=== PATIENT | female | born 1990 | race Caucasian/White ===

== ENCOUNTER 2017-01-01 16:50 | Emergency (ER) | payer OTHER ==
[2017-01-01] MEDS ORDERED: diphenhydrAMINE INJ 50MG/ML VIAL (J1200) As Ordered ONE (17:23)
[2017-01-01] MEDS ORDERED: METOCLOPRAMIDE INJ 10MG/2ML VIAL (J2765) As Ordered ONE (17:23)
[2017-01-01 17:41] LABS: BASO # 0.1 K/mm3 (0.0-0.2); BASO % 0.4 % (0.0-1.0); EOS # 0.2 K/mm3 (0.0-0.50); EOS % 1.2 % (0.0-3.0); LARGE UNSTAINED CELL # 0.2 K/mm3 (0.0-0.4); LARGE UNSTAINED CELL % 1.2 % (0.0-4.0); LYMPH # 4.1 K/mm3 (1.5-6.5); LYMPH % 25.8 % (24.0-44.0); MEAN CORPUSCULAR HEMOGLOBIN 28.2 pg (27.0-33.0); MEAN CORPUSCULAR HGB CONC 33.9 g/dl (32.0-36.5); MEAN CORPUSCULAR VOLUME 83.4 fl (80.0-96.0); MONO # 0.8 K/mm3 (0.0-0.8); MONO % 5.4 % (0.0-5.0); NEUTROPHILS # 9.9 K/mm3 (1.8-7.7); NEUTROPHILS % 65.9 % (36.0-66.0); PLATELET COUNT, AUTOMATED 457 k/mm3 (150-450); RED CELL DISTRIBUTION WIDTH 12.6 % (11.5-14.5)
[2017-01-01 18:08] LABS: ALBUMIN 3.8 GM/DL (3.2-5.2); ALBUMIN/GLOBULIN RATIO 0.86 (1.00-1.93); ALKALINE PHOSPHATASE 68 U/L (45-117); ALT/SGPT 24 U/L (12-78); AMYLASE 50 U/L (25-115); ANION GAP 10 MEQ/L (8-16); AST/SGOT 21 U/L (15-37); BILIRUBIN,DIRECT < 0.1 MG/DL (0.0-0.2); BILIRUBIN,TOTAL 0.2 MG/DL (0.2-1.0); BLOOD UREA NITROGEN 10 MG/DL (7-18); CALCIUM LEVEL 9.8 MG/DL (8.5-10.1); CARBON DIOXIDE LEVEL 25 MEQ/L (21-32); CHLORIDE LEVEL 106 MEQ/L (98-107); CREATININE FOR GFR 0.77 MG/DL (0.55-1.02); GLOMERULAR FILTRATION RATE > 60.0 (>60); GLUCOSE, FASTING 115 MG/DL (70-105); SODIUM LEVEL 141 MEQ/L (136-145); TOTAL PROTEIN 8.2 GM/DL (6.4-8.2)
--- NOTE | 2017-01-01 18:10 | REPUSA ---
Clinical stClinical history: Pain. Findings: Real-time transabdominal and limited transvaginal ultrasound images of the pelvis were obta ined. An anteverted uterus is noted, measuring 5.6 x 3.2 x 3.7 cm. The uterus demonstrates normal ech otexture and echogenicity. The endometrial stripe measures 6 mm and is within normal limits. The righ t ovary measures 2.9 x 2.5 x 3.3 cm. The left ovary measures 3.8 x 2.4 x 2.3 cm. No adnexal masses ar e seen. Color Doppler flow is seen within both ovaries. There is moderate amount of free fluid in the cul-de-sac and right adnexa. Impression: Unremarkable ultrasound examination of the pelvis. Moderate amount of free fluid in the p balta is likely physiologic in nature.
[2017-01-01] MEDS ORDERED: ISOVUE-370 76% 100ML VIAL (Q9967) As Ordered ONE (18:12)
--- NOTE | 2017-01-01 18:40 | REPUSA ---
CT of the abdomen and pelvis with contrast Clinical statement: Pain. Technique: Multiple axial CT images were obtained from the base of the lungs through the floor of the pelvis utilizing 5 mm axial slices after administration of nonionic intravenous contrast. Coronal an d sagittal reconstructions were also obtained. Comparison: 01/01/2017. Findings: Chest: The visualized lung bases are clear. Abdomen: The liver, spleen, pancreas, kidneys, gallbladder, and adrenal glands are unremarkable. The aorta is within normal limits. There is no evidence of abdominal lymphadenopathy or ascites. Pelvis: The bowel is unremarkable, with no obstructive or inflammatory changes. The appendix is dejuan l. The urinary bladder is within normal limits. The other pelvic structures appear grossly intact. Th ere is no evidence of pelvic lymphadenopathy. There is a small amount of free fluid in the cul-de-sac and right adnexa. Bones: There are no suspicious osseous abnormalities seen. Impression: Small amount of free fluid in the cul-de-sac and right adnexa, consistent with the prior pelvic ultrasound findings. This is likely physiologic in nature. Otherwise unremarkable CT examinati on of the abdomen and pelvis.
--- NOTE | 2017-01-01 19:59 | EDDOCDS ---
Nurse's Notes [facility] Name: Ibeth Holt Age: 26 yrs Sex: Female : 1990 Arrival Date: 01/01/2017 Time: 16:50 Bed I3 / M3 Private MD: NO PRIMARY PHYSICIAN, . Diagnosis: Other ovarian cysts Presentation: 01/01 16:53 Presenting complaint: Patient states: having pelvic and abdominal pain. symptoms for an srm hour. feels like pelvic pain that is shooting up my body. no urinary difficulty. no abnormal vag bleeding or discharge. Presenting complaint: Patient states: pain started after BM. Risk factors: the patient reports no vaginal bleeding. Adult Sepsis Screening: The patient does not have new or worsening altered mentation. Patient's respiratory rate is less than 22. Systolic blood pressure is greater than 100. Patient has a qSOFA score of 0- Negative Sepsis Screen. Suicide/Homicide risk assessment- the patient denies having any suicidal and/or homicidal ideations and does not present with any other emotional, behavioral or mental health complaints. Status: The patient is a dependent. Transition of care: patient was not received from another setting of care. 16:53 Acuity: BRITTNY Level 3 srm 16:53 Method Of Arrival: Walkin/Carried/[facility] Triage Assessment: 16:55 General: Appears in no apparent distress, Behavior is appropriate for age, cooperative. srm Pain: Pain currently is 6 out of 10 on a pain scale. GI: Reports lower abdominal pain. 16:55 Pt Declines HIV testing. 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 premaphen daily - PMHx: none; - PSHx: none; - Social history: Smoking status: Patient states was never smoker of tobacco. No barriers to communication noted, The patient speaks fluent Hungarian, Speaks appropriately for age. - Family history: Not pertinent. - : The pt / caregiver states he / she is not on anticoagulants. Home medication list is obtained from the patient. - Exposure Risk Screening:: None identified. Screenin:23 Screening information is obtained from the patient. Fall risk: No risks identified. js13 Assistance ADL's: requires no assistance with activities of daily living. Abuse/DV Screen: The patient / caregiver reports he/she is: not in a situation that causes fear, pain or injury. Nutritional screening: No deficits noted. Advance Directives: There is no active DNR order. home support is adequate. Assessment: 17:23 General: Appears in no apparent distress, Behavior is appropriate for age, cooperative. js13 Neurological: Level of Consciousness is awake, alert. Respiratory: Airway is patent Respiratory effort is even, unlabored, Respiratory pattern is regular, symmetrical. GI: Abdomen is obese, Bowel sounds present X 4 quads. Abd is soft Abd is tender to palpation. Derm: Skin is pink, warm & dry. 18:07 General: Appears in no apparent distress, Behavior is appropriate for age, cooperative. js13 Pain: Location: abdomen. Neurological: Level of Consciousness is awake, alert. Respiratory: Airway is patent Respiratory effort is even, unlabored, Respiratory pattern is regular, symmetrical. GI: Abdomen is obese. Derm: Skin is pink, warm & dry. 19:55 Adult Sepsis Screening: The patient does not have new or worsening altered mentation. lf1 Patient's respiratory rate is less than 22. Systolic blood pressure is greater than 100. Patient has a qSOFA score of 0- Negative Sepsis Screen. General: Appears in no apparent distress, comfortable, Behavior is cooperative. Pain: Location: abdomen Pain currently is 2 out of 10 on a pain scale. Neurological: Level of Consciousness is awake, alert, Oriented to person, place, time. EENT: No deficits noted. Respiratory: Respiratory effort is even, unlabored. GI: Denies nausea, vomiting. Derm: Skin is normal. Injury Description: No known injury. Vital Signs: 16:51 BP 167 / 95 RA Sitting (auto/lg); Pulse 105; Resp 18; Temp 98.3(O); Pulse Ox 100% on rs6 R/A; Weight 95.25 kg (R); Height 5 ft. 3 in. (160.02 cm) (R); Pain 6/10; 19:13 BP 137 / 69; Pulse 77; Resp 18; Temp 98.4; Pulse Ox 98% ; Pain 4/10; ajs 16:51 Body Mass Index 37.20 (95.25 kg, 160.02 cm) rs6 Vitals: 16:51 Log In Time: January 01, 2017 at 16:51. 6 ED Course: 16:51 Patient visited by Constance Cm PCA. rs6 16:51 NO PRIMARY PHYSICIAN, . is Private Physician. rs6 16:51 Patient moved to Waiting rs6 16:52 Patient visited by Constance Cm PCA. rs6 16:52 Patient moved to Pre RCE rs6 16:54 Triage Initiated srm 16:56 Patient moved to Triage 1 srm 17:00 Chang Becerril PA is PHCP. btw 17:00 Jacinta Nelson MD is Attending Physician. btw 17:00 Patient visited by Chang Becerril PA. btw 17:07 Patient moved to I3 / M3 jf3 17:17 Urine Culture Sent. jam1 17:17 Urinalysis Sent. jam1 17:22 Amylase Sent. js13 17:22 Basic Metabolic Profile Sent. js13 17:23 Patient moved to Ultrasound am17 17:23 The patient / caregiver is instructed regarding the plan of care and ED course. js13 17:23 CBC with Diff Sent. js13 17:23 Lipase Sent. js13 17:23 Liver Profile Sent. js13 17:23 Inserted saline lock: 18 gauge in left forearm and blood collected. The patient js13 tolerated the procedure well. No procedures done that require assistance. Labs drawn. (by ED staff). Sent per order to lab. Urine collected. Clean catch specimen. Urine specimen sent to lab. 17:24 Patient visited by Florencia Lombardo RN. js13 17:38 [facility] Payment Agreement was scanned into [employer] and attached to record. ks16 17:40 Patient moved to I3 / M3 am17 17:55 Patient visited by iMlton Millard, LEONOR. ml6 18:35 Patient visited by Milton Millard, LEONOR. ml6 18:40 -US Pelvic Non-Ob Complete Returned. EDMS 18:40 CT ABD & PELVIS: IV Contrast Only Returned. EDMS 19:13 Patient visited by Ibeth Farrar. ajs 19:24 Your Academic Advisement Director is Referral Physician. btw 19:55 Discontinued IV lock intact, bleeding controlled, pressure dressing applied, No lf1 redness/swelling at site. Administered Medications: 17:39 Drug: diphenhydrAMINE 50 mg [diphenhydramine 50 mg/mL injection solution (1 mL)] Route: ml6 IVP; Site: left antecubital; 19:55 Follow up: Response: Nausea is resolved lf1 17:40 Drug: NS 0.9% 1000 ml [sodium chloride 0.9 % intravenous solution] Route: IV; Rate: ml6 bolus; Site: left antecubital; 19:55 Follow up: IV Status: Completed infusion; Infusion discontinued; IV Intake: 1000ml lf1 17:40 Drug: Metoclopramide 20 mg [metoclopramide 5 mg/mL injection solution] Route: IV; Rate: ml6 80 mg/hr; Infused Over: 15 mins; Site: left antecubital; 19:55 Follow up: IV Status: Completed infusion lf1 Point of Care Testing: Urine : 17:18 hCG Reading: Negative; Control Reading: Negative; [facility] Ranges: Intake: 19:55 IV: 1000.00ml; Total: 1000.00ml. 1 Order Results: Lab Order: Amylase; SPEC'M 01/01/17 17:20 Test: AMYLASE; Value: 50; Range: 25-115; Units: U/L; Status: F Lab Order: Basic Metabolic Profile; SPEC'M 01/01/17 17:20 Test: GLUCOSE, FASTING; Value: 115; Range: 70-105; Abnormal: Above high normal; Units: MG/DL; Status: F Test: BLOOD UREA NITROGEN; Value: 10; Range: 7-18; Units: MG/DL; Status: F Test: CREATININE FOR GFR; Value: 0.77; Range: 0.55-1.02; Units: MG/DL; Status: F Test: GLOMERULAR FILTRATION RATE; Value: > 60.0; Range: >60; Status: F Test: SODIUM LEVEL; Value: 141; Range: 136-145; Units: MEQ/L; Status: F Test: POTASSIUM SERUM; Value: 4.0; Range: 3.5-5.1; Units: MEQ/L; Status: F Test: CHLORIDE LEVEL; Value: 106; Range: 98-107; Units: MEQ/L; Status: F Test: CARBON DIOXIDE LEVEL; Value: 25; Range: 21-32; Units: MEQ/L; Status: F Test: ANION GAP; Value: 10; Range: 8-16; Units: MEQ/L; Status: F Test: CALCIUM LEVEL; Value: 9.8; Range: 8.5-10.1; Units: MG/DL; Status: F Test Note: ; Units are mL/min/1.73 m2 Chronic Kidney Disease Staging per NKF: Stage I & II GFR >=60 Normal to Mildly Decreased Stage III GFR 30-59 Moderately Decreased Stage IV GFR 15-29 Severely Decreased Stage V GFR <15 Very Little GFR Left ESRD GFR <15 on E [employer] Lab Order: CBC with Diff; SPEC'M 01/01/17 17:20 Test: WHITE BLOOD COUNT; Value: 15.0; Range: 4.0-10.0; Abnormal: Above high normal; Units: K/mm3; Status: F Test: RED BLOOD COUNT; Value: 4.68; Range: 4.00-5.40; Units: M/mm3; Status: F Test: HEMOGLOBIN; Value: 13.2; Range: 12.0-16.0; Units: g/dl; Status: F Test: HEMATOCRIT; Value: 39.0; Range: 36.0-47.0; Units: %; Status: F Test: MEAN CORPUSCULAR VOLUME; Value: 83.4; Range: 80.0-96.0; Units: fl; Status: F Test: MEAN CORPUSCULAR HEMOGLOBIN; Value: 28.2; Range: 27.0-33.0; Units: pg; Status: F Test: MEAN CORPUSCULAR HGB CONC; Value: 33.9; Range: 32.0-36.5; Units: g/dl; Status: F Test: RED CELL DISTRIBUTION WIDTH; Value: 12.6; Range: 11.5-14.5; Units: %; Status: F Test: PLATELET COUNT, AUTOMATED; Value: 457; Range: 150-450; Abnormal: Above high normal; Units: k/mm3; Status: F Test: NEUTROPHILS %; Value: 65.9; Range: 36.0-66.0; Units: %; Status: F Test: LYMPH %; Value: 25.8; Range: 24.0-44.0; Units: %; Status: F Test: MONO %; Value: 5.4; Range: 0.0-5.0; Abnormal: Above high normal; Units: %; Status: F Test: EOS %; Value: 1.2; Range: 0.0-3.0; Units: %; Status: F Test: BASO %; Value: 0.4; Range: 0.0-1.0; Units: %; Status: F Test: LARGE UNSTAINED CELL %; Value: 1.2; Range: 0.0-4.0; Units: %; Status: F Test: NEUTROPHILS #; Value: 9.9; Range: 1.8-7.7; Abnormal: Above high normal; Units: K/mm3; Status: F Test: LYMPH #; Value: 4.1; Range: 1.5-6.5; Units: K/mm3; Status: F Test: MONO #; Value: 0.8; Range: 0.0-0.8; Units: K/mm3; Status: F Test: EOS #; Value: 0.2; Range: 0.0-0.50; Units: K/mm3; Status: F Test: BASO #; Value: 0.1; Range: 0.0-0.2; Units: K/mm3; Status: F Test: LARGE UNSTAINED CELL #; Value: 0.2; Range: 0.0-0.4; Units: K/mm3; Status: F Lab Order: Lipase; SPEC' 01/01/17 17:20 Test: LIPASE; Value: 138; Range: 73-393; Units: U/L; Status: F Lab Order: Liver Profile; [facility]' 01/01/17 17:20 Test: AST/SGOT; Value: 21; Range: 15-37; Units: U/L; Status: F Test: ALT/SGPT; Value: 24; Range: 12-78; Units: U/L; Status: F Test: ALKALINE PHOSPHATASE; Value: 68; Range: 45-117; Units: U/L; Status: F Test: BILIRUBIN,TOTAL; Value: 0.2; Range: 0.2-1.0; Units: MG/DL; Status: F Test: BILIRUBIN,DIRECT; Value: < 0.1; Range: 0.0-0.2; Units: MG/DL; Status: F Test: TOTAL PROTEIN; Value: 8.2; Range: 6.4-8.2; Units: GM/DL; Status: F Test: ALBUMIN; Value: 3.8; Range: 3.2-5.2; Units: GM/DL; Status: F Test: ALBUMIN/GLOBULIN RATIO; Value: 0.86; Range: 1.00-1.93; Abnormal: Below low normal; Status: F Lab Order: Urinalysis; SPEC'M 01/01/17 17:22 Test: APPEARANCE, URINE; Value: HAZY; Range: CLEAR; Status: F Test: COLOR, URINE; Value: YELLOW; Range: YELLOW; Status: F Test: PH,URINE; Value: 6.0; Range: 5.0-9.0; Units: UNITS; Status: F Test: SPECIFIC GRAVITY URINE AUTO; Value: 1.029; Range: 1.002-1.035; Status: F Test: PROTEIN, URINE AUTO; Value: NEGATIVE; Range: NEGATIVE; Units: mg/dL; Status: F Test: GLUCOSE, URINE (UA) AUTO; Value: NEGATIVE; Range: NEGATIVE; Units: mg/dL; Status: F Test: KETONE, URINE AUTO; Value: NEGATIVE; Range: NEGATIVE; Units: mg/dL; Status: F Test: UROBILINOGEN, URINE AUTO; Value: 0.2; Range: 0.0-2.0; Units: mg/dL; Status: F Test: BILIRUBIN, URINE AUTO; Value: NEGATIVE; Range: NEGATIVE; Status: F Test: NITRITE, URINE AUTO; Value: NEGATIVE; Range: NEGATIVE; Status: F Test: LEUKOCYTE ESTERASE, URINE AUTO; Value: TRACE; Range: NEGATIVE; Abnormal: Above high normal; Status: F Test: BLOOD, URINE BLOOD; Value: NEGATIVE; Range: NEGATIVE; Status: F Test: WBC, URINE AUTO; Value: 2; Range: 0-3; Units: /HPF; Status: F Test: RBC, URINE AUTO; Value: 3; Range: 0-3; Units: /HPF; Status: F Test: BACTERIA, URINE AUTO; Value: NEGATIVE; Range: NEGATIVE; Status: F Test: SQUAMOUS EPITHELIAL CELL UR AU; Value: 3; Range: 0-6; Units: /HPF; Status: F Test: MUCUS, URINE; Value: SMALL; Range: NEGATIVE; Status: F Test: HYALINE CAST, URINE AUTO; Value: 0; Range: 0-1; Units: /LPF; Status: F Radiology Order: CT ABD & PELVIS: IV Contrast Only Test: CT ABD & PELVIS: IV Contrast Only REASON FOR EXAMINATION: Appendicitis; ; CT of the abdomen and pelvis with contrast; Clinical statement: Pain.; Technique: Multiple axial CT images were obtained from the base of the lungs through the floor of the; pelvis utilizing 5 mm axial slices after administration of nonionic intravenous contrast. Coronal an; d sagittal reconstructions were also obtained.; Comparison: 01/01/2017.; Findings:; Chest: The visualized lung bases are clear.; Abdomen: The liver, spleen, pancreas, kidneys, gallbladder, and adrenal glands are unremarkable. The; aorta is within normal limits. There is no evidence of abdominal lymphadenopathy or ascites.; Pelvis: The bowel is unremarkable, with no obstructive or inflammatory changes. The appendix is dejuan; l. The urinary bladder is within normal limits. The other pelvic structures appear grossly intact. Th; ere is no evidence of pelvic lymphadenopathy. There is a small amount of free fluid in the cul-de-sac; and right adnexa.; Bones: There are no suspicious osseous abnormalities seen.; Impression: Small amount of free fluid in the cul-de-sac and right adnexa, consistent with the prior; pelvic ultrasound findings. This is likely physiologic in nature. Otherwise unremarkable CT examinati; on of the abdomen and pelvis.; ; Radiology Order: -US Pelvic Non-Ob Complete Test: -US Pelvic Non-Ob Complete REASON FOR EXAMINATION: Adnexal Pain r/o Torsion; ; Clinical stClinical history: Pain.; Findings: Real-time transabdominal and limited transvaginal ultrasound images of the pelvis were obta; ined. An anteverted uterus is noted, measuring 5.6 x 3.2 x 3.7 cm. The uterus demonstrates normal ech; otexture and echogenicity. The endometrial stripe measures 6 mm and is within normal limits. The righ; t ovary measures 2.9 x 2.5 x 3.3 cm. The left ovary measures 3.8 x 2.4 x 2.3 cm. No adnexal masses ar; e seen. Color Doppler flow is seen within both ovaries. There is moderate amount of free fluid in the; cul-de-sac and right adnexa.; Impression: Unremarkable ultrasound examination of the pelvis. Moderate amount of free fluid in the p; balta is likely physiologic in nature.; ; Outcome: 19:25 Discharge ordered by Provider. btw 19:55 Discharge Assessment: Patient awake, alert and oriented x 3. No cognitive and/or lf1 functional deficits noted. Patient verbalized understanding of disposition instructions. Patient awake and alert. Oriented to person, place and time. Patient verbalized understanding of disposition instructions. patient administered narcotics - no. The following High Risk Discharge criteria are identified: None. Discharged to home ambulatory. Condition: improved. Discharge instructions given to patient, Instructed on discharge instructions, follow up and referral plans. medication usage, Demonstrated understanding of instructions, medications, Pt was receptive of discharge instructions/ teaching. Prescriptions given X 1. No special radiology studies were completed. Property :Personal belongings accompany Pt. 19:58 Patient left the ED. lf1 Signatures: Dispatcher [employer] EDMS Lillian Giles, RN RN Cyndy Corbin, DEDICATED REGIONAL DRIVER DEDICATED REGIONAL DRIVER jam1 Rebecca Liang,RN RN lf1 Milton Millard, RN RN ml6 Chang Becerril PA PA btw Ibeth Farrar Jennifer,RN RN js13 Anna Marie Hill amConstance Mike, DEDICATED REGIONAL DRIVER DEDICATED REGIONAL DRIVER rs6 Azeem Shea,RN RN jf3 Thao Ronquillo, Reg Reg ks16 MTDD
--- NOTE | 2017-01-01 19:59 | EDDOCDS ---
Physician Documentation [facility] Name: Ibeth Holt Age: 26 yrs Sex: Female : 1990 Arrival Date: 01/01/2017 Time: 16:50 Bed I3 / M3 Private MD: NO PRIMARY PHYSICIAN, . Disposition: 01/01/17 19:25 Discharged to Home/Self Care. Impression: Other ovarian cysts. - Condition is Stable. - Discharge Instructions: Ovarian Cyst, [id number]. - Prescriptions for etodolac 200 mg Oral Capsule - take 1 capsule by ORAL route 3 times per day; 30 capsule. - Medication Reconciliation, Local Pharmacy Hours form. 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 - Problem is new. - Symptoms have improved. Historical: - Allergies: no known allergies; - Home Meds: 1. premaphen daily - PMHx: none; - PSHx: none; - Social history: Smoking status: Patient states was never smoker of tobacco. No barriers to communication noted, The patient speaks fluent Romansh, Speaks appropriately for age. - Family history: Not pertinent. - : The pt / caregiver states he / she is not on anticoagulants. Home medication list is obtained from the patient. - Exposure Risk Screening:: None identified. 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 3 in. (160.02 cm) (R); Pain 6/10; 19:13 BP 137 / 69; Pulse 77; Resp 18; Temp 98.4; Pulse Ox 98% ; Pain 4/10; ajs 16:51 Body Mass Index 37.20 (95.25 kg, 160.02 cm) rs6 MDM: 17:06 NS 0.9% 1000 ml IV at bolus once ordered. btw 17:06 IV Saline Lock ordered. btw 17:06 Undress patient appropriately for examination ordered. btw 17:06 Metoclopramide 20 mg IV at 80 mg/hr once over 15 mins ordered. btw 17:06 diphenhydrAMINE 50 mg IVP once ordered. btw 17:07 Amylase Ordered. EDMS 17:07 Basic Metabolic Profile Ordered. EDMS 17:07 CBC with Diff Ordered. EDMS 17:07 Lipase Ordered. EDMS 17:07 Liver Profile Ordered. EDMS 17:07 Urinalysis Ordered. EDMS 17:08 Urine Culture Ordered. EDMS 17:08 -US Pelvic Non-Ob Complete Ordered. EDMS 17:08 DUPLEX SCAN LIMITED (DOPPLER)+US Ordered. EDMS 17:08 CT ABD & PELVIS: IV Contrast Only Ordered. EDMS 17:08 NOTHING BY MOUTH+DIET ordered. EDMS 17:12 UCG by Nursing ordered. btw 17:28 Financial registration complete. ks16 17:38 Transvaginal NON- US Ordered. EDMS 17:38 [facility] Payment Agreement was scanned into [employer] and attached to record. ks16 18:12 Basic Metabolic Profile Reviewed. btw 18:12 CBC with Diff Reviewed. btw 18:12 Liver Profile Reviewed. btw 18:12 Urinalysis Reviewed. btw 18:12 Amylase Reviewed. btw 18:12 Lipase Reviewed. btw Point of Care Testing: Urine : 17:18 hCG Reading: Negative; Control Reading: Negative; jam1 Ranges: Administered Medications: 17:39 Drug: diphenhydrAMINE 50 mg [diphenhydramine 50 mg/mL injection solution (1 mL)] Route: ml6 IVP; Site: left antecubital; 19:55 Follow up: Response: Nausea is resolved lf1 17:40 Drug: NS 0.9% 1000 ml [sodium chloride 0.9 % intravenous solution] Route: IV; Rate: ml6 bolus; Site: left antecubital; 19:55 Follow up: IV Status: Completed infusion; Infusion discontinued; IV Intake: 1000ml lf1 17:40 Drug: Metoclopramide 20 mg [metoclopramide 5 mg/mL injection solution] Route: IV; Rate: ml6 80 mg/hr; Infused Over: 15 mins; Site: left antecubital; 19:55 Follow up: IV Status: Completed infusion lf1 Signatures: Dispatcher [employer] EDMS Lillian Giles RN RN [facility] Rebecca Liang RN RN 1 Chang Becerril PA PA btw Sullivan, JenniferRN RN js13 Thao Ronquillo, Reg Reg ks16 Milton Millard RN ml6 The chart was reviewed and I authenticate all verbal orders and agree with the evaluation and treatment provided.Attachments: 17:38 [facility] Payment Agreement ks16 MTDD
--- NOTE | 2017-01-03 20:59 | EDDOCDS ---
Nurse's Notes [facility] Name: Ibeth Holt Age: 26 yrs Sex: Female : 1990 Arrival Date: 01/01/2017 Time: 16:50 Bed I3 / M3 Private MD: NO PRIMARY PHYSICIAN, . Diagnosis: Other ovarian cysts Presentation: 01/01 16:53 Presenting complaint: Patient states: having pelvic and abdominal pain. symptoms for an srm hour. feels like pelvic pain that is shooting up my body. no urinary difficulty. no abnormal vag bleeding or discharge. Presenting complaint: Patient states: pain started after BM. Risk factors: the patient reports no vaginal bleeding. Adult Sepsis Screening: The patient does not have new or worsening altered mentation. Patient's respiratory rate is less than 22. Systolic blood pressure is greater than 100. Patient has a qSOFA score of 0- Negative Sepsis Screen. Suicide/Homicide risk assessment- the patient denies having any suicidal and/or homicidal ideations and does not present with any other emotional, behavioral or mental health complaints. Status: The patient is a dependent. Transition of care: patient was not received from another setting of care. 16:53 Acuity: BRITTNY Level 3 srm 16:53 Method Of Arrival: Walkin/Carried/[facility] Triage Assessment: 16:55 General: Appears in no apparent distress, Behavior is appropriate for age, cooperative. srm Pain: Pain currently is 6 out of 10 on a pain scale. GI: Reports lower abdominal pain. 16:55 Pt Declines HIV testing. srm SURGERY AID: 16:55 LMP 12/25/2016 srm Historical: - Allergies: no known allergies; - Home Meds: 1. premaphen daily - PMHx: none; - PSHx: none; - Social history: Smoking status: Patient states was never smoker of tobacco. No barriers to communication noted, The patient speaks fluent Mohawk, Speaks appropriately for age. - Family history: Not pertinent. - : The pt / caregiver states he / she is not on anticoagulants. Home medication list is obtained from the patient. - Exposure Risk Screening:: None identified. Screenin:23 Screening information is obtained from the patient. Fall risk: No risks identified. js13 Assistance ADL's: requires no assistance with activities of daily living. Abuse/DV Screen: The patient / caregiver reports he/she is: not in a situation that causes fear, pain or injury. Nutritional screening: No deficits noted. Advance Directives: There is no active DNR order. home support is adequate. Assessment: 17:23 General: Appears in no apparent distress, Behavior is appropriate for age, cooperative. js13 Neurological: Level of Consciousness is awake, alert. Respiratory: Airway is patent Respiratory effort is even, unlabored, Respiratory pattern is regular, symmetrical. GI: Abdomen is obese, Bowel sounds present X 4 quads. Abd is soft Abd is tender to palpation. Derm: Skin is pink, warm & dry. 18:07 General: Appears in no apparent distress, Behavior is appropriate for age, cooperative. js13 Pain: Location: abdomen. Neurological: Level of Consciousness is awake, alert. Respiratory: Airway is patent Respiratory effort is even, unlabored, Respiratory pattern is regular, symmetrical. GI: Abdomen is obese. Derm: Skin is pink, warm & dry. 19:55 Adult Sepsis Screening: The patient does not have new or worsening altered mentation. lf1 Patient's respiratory rate is less than 22. Systolic blood pressure is greater than 100. Patient has a qSOFA score of 0- Negative Sepsis Screen. General: Appears in no apparent distress, comfortable, Behavior is cooperative. Pain: Location: abdomen Pain currently is 2 out of 10 on a pain scale. Neurological: Level of Consciousness is awake, alert, Oriented to person, place, time. EENT: No deficits noted. Respiratory: Respiratory effort is even, unlabored. GI: Denies nausea, vomiting. Derm: Skin is normal. Injury Description: No known injury. Vital Signs: 16:51 BP 167 / 95 RA Sitting (auto/lg); Pulse 105; Resp 18; Temp 98.3(O); Pulse Ox 100% on rs6 R/A; Weight 95.25 kg (R); Height 5 ft. 3 in. (160.02 cm) (R); Pain 6/10; 19:13 BP 137 / 69; Pulse 77; Resp 18; Temp 98.4; Pulse Ox 98% ; Pain 4/10; ajs 16:51 Body Mass Index 37.20 (95.25 kg, 160.02 cm) rs6 Vitals: 16:51 Log In Time: January 01, 2017 at 16:51. 6 ED Course: 16:51 Patient visited by Constance Cm PCA. rs6 16:51 NO PRIMARY PHYSICIAN, . is Private Physician. rs6 16:51 Patient moved to Waiting rs6 16:52 Patient visited by Constance Cm PCA. rs6 16:52 Patient moved to Pre RCE rs6 16:54 Triage Initiated srm 16:56 Patient moved to Triage 1 srm 17:00 Chang Beecrril PA is PHCP. btw 17:00 Jacinta Nelson MD is Attending Physician. btw 17:00 Patient visited by Chang Becerril PA. btw 17:07 Patient moved to I3 / M3 jf3 17:17 Urine Culture Sent. jam1 17:17 Urinalysis Sent. jam1 17:22 Amylase Sent. js13 17:22 Basic Metabolic Profile Sent. js13 17:23 Patient moved to Ultrasound am17 17:23 The patient / caregiver is instructed regarding the plan of care and ED course. js13 17:23 CBC with Diff Sent. js13 17:23 Lipase Sent. js13 17:23 Liver Profile Sent. js13 17:23 Inserted saline lock: 18 gauge in left forearm and blood collected. The patient js13 tolerated the procedure well. No procedures done that require assistance. Labs drawn. (by ED staff). Sent per order to lab. Urine collected. Clean catch specimen. Urine specimen sent to lab. 17:24 Patient visited by Florencia Lombardo,LEONOR. js13 17:38 [facility] Payment Agreement was scanned into [employer] and attached to record. ks16 17:40 Patient moved to I3 / M3 am17 17:55 Patient visited by Milton Millard, RN. ml6 18:35 Patient visited by Milton Millard, LEONOR. ml6 18:40 -US Pelvic Non-Ob Complete Returned. EDMS 18:40 CT ABD & PELVIS: IV Contrast Only Returned. EDMS 19:13 Patient visited by Ibeth Farrar. ajs 19:24 Your Joist Setter is Referral Physician. btw 19:55 Discontinued IV lock intact, bleeding controlled, pressure dressing applied, No lf1 redness/swelling at site. 01/02 11:38 T-Sheet-- Draft Copy was scanned into [employer] and attached to record. gb Administered Medications: 01/01 17:39 Drug: diphenhydrAMINE 50 mg [diphenhydramine 50 mg/mL injection solution (1 mL)] Route: ml6 IVP; Site: left antecubital; 19:55 Follow up: Response: Nausea is resolved lf1 17:40 Drug: NS 0.9% 1000 ml [sodium chloride 0.9 % intravenous solution] Route: IV; Rate: ml6 bolus; Site: left antecubital; 19:55 Follow up: IV Status: Completed infusion; Infusion discontinued; IV Intake: 1000ml 1 17:40 Drug: Metoclopramide 20 mg [metoclopramide 5 mg/mL injection solution] Route: IV; Rate: ml6 80 mg/hr; Infused Over: 15 mins; Site: left antecubital; 19:55 Follow up: IV Status: Completed infusion lf1 Point of Care Testing: Urine : 17:18 hCG Reading: Negative; Control Reading: Negative; jam1 Ranges: Intake: 19:55 IV: 1000.00ml; Total: 1000.00ml. 1 Order Results: Lab Order: Amylase; SPEC'M 01/01/17 17:20 Test: AMYLASE; Value: 50; Range: 25-115; Units: U/L; Status: F Lab Order: Basic Metabolic Profile; SPEC'M 01/01/17 17:20 Test: GLUCOSE, FASTING; Value: 115; Range: 70-105; Abnormal: Above high normal; Units: MG/DL; Status: F Test: BLOOD UREA NITROGEN; Value: 10; Range: 7-18; Units: MG/DL; Status: F Test: CREATININE FOR GFR; Value: 0.77; Range: 0.55-1.02; Units: MG/DL; Status: F Test: GLOMERULAR FILTRATION RATE; Value: > 60.0; Range: >60; Status: F Test: SODIUM LEVEL; Value: 141; Range: 136-145; Units: MEQ/L; Status: F Test: POTASSIUM SERUM; Value: 4.0; Range: 3.5-5.1; Units: MEQ/L; Status: F Test: CHLORIDE LEVEL; Value: 106; Range: 98-107; Units: MEQ/L; Status: F Test: CARBON DIOXIDE LEVEL; Value: 25; Range: 21-32; Units: MEQ/L; Status: F Test: ANION GAP; Value: 10; Range: 8-16; Units: MEQ/L; Status: F Test: CALCIUM LEVEL; Value: 9.8; Range: 8.5-10.1; Units: MG/DL; Status: F Test Note: ; Units are mL/min/1.73 m2 Chronic Kidney Disease Staging per NKF: Stage I & II GFR >=60 Normal to Mildly Decreased Stage III GFR 30-59 Moderately Decreased Stage IV GFR 15-29 Severely Decreased Stage V GFR <15 Very Little GFR Left ESRD GFR <15 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 Lab Order: CBC with Diff; SPEC'M 01/01/17 17:20 Test: WHITE BLOOD COUNT; Value: 15.0; Range: 4.0-10.0; Abnormal: Above high normal; Units: K/mm3; Status: F Test: RED BLOOD COUNT; Value: 4.68; Range: 4.00-5.40; Units: M/mm3; Status: F Test: HEMOGLOBIN; Value: 13.2; Range: 12.0-16.0; Units: g/dl; Status: F Test: HEMATOCRIT; Value: 39.0; Range: 36.0-47.0; Units: %; Status: F Test: MEAN CORPUSCULAR VOLUME; Value: 83.4; Range: 80.0-96.0; Units: fl; Status: F Test: MEAN CORPUSCULAR HEMOGLOBIN; Value: 28.2; Range: 27.0-33.0; Units: pg; Status: F Test: MEAN CORPUSCULAR HGB CONC; Value: 33.9; Range: 32.0-36.5; Units: g/dl; Status: F Test: RED CELL DISTRIBUTION WIDTH; Value: 12.6; Range: 11.5-14.5; Units: %; Status: F Test: PLATELET COUNT, AUTOMATED; Value: 457; Range: 150-450; Abnormal: Above high normal; Units: k/mm3; Status: F Test: NEUTROPHILS %; Value: 65.9; Range: 36.0-66.0; Units: %; Status: F Test: LYMPH %; Value: 25.8; Range: 24.0-44.0; Units: %; Status: F Test: MONO %; Value: 5.4; Range: 0.0-5.0; Abnormal: Above high normal; Units: %; Status: F Test: EOS %; Value: 1.2; Range: 0.0-3.0; Units: %; Status: F Test: BASO %; Value: 0.4; Range: 0.0-1.0; Units: %; Status: F Test: LARGE UNSTAINED CELL %; Value: 1.2; Range: 0.0-4.0; Units: %; Status: F Test: NEUTROPHILS #; Value: 9.9; Range: 1.8-7.7; Abnormal: Above high normal; Units: K/mm3; Status: F Test: LYMPH #; Value: 4.1; Range: 1.5-6.5; Units: K/mm3; Status: F Test: MONO #; Value: 0.8; Range: 0.0-0.8; Units: K/mm3; Status: F Test: EOS #; Value: 0.2; Range: 0.0-0.50; Units: K/mm3; Status: F Test: BASO #; Value: 0.1; Range: 0.0-0.2; Units: K/mm3; Status: F Test: LARGE UNSTAINED CELL #; Value: 0.2; Range: 0.0-0.4; Units: K/mm3; Status: F Lab Order: Lipase; SPEC' 01/01/17 17:20 Test: LIPASE; Value: 138; Range: 73-393; Units: U/L; Status: F Lab Order: Liver Profile; SPEC' 01/01/17 17:20 Test: AST/SGOT; Value: 21; Range: 15-37; Units: U/L; Status: F Test: ALT/SGPT; Value: 24; Range: 12-78; Units: U/L; Status: F Test: ALKALINE PHOSPHATASE; Value: 68; Range: 45-117; Units: U/L; Status: F Test: BILIRUBIN,TOTAL; Value: 0.2; Range: 0.2-1.0; Units: MG/DL; Status: F Test: BILIRUBIN,DIRECT; Value: < 0.1; Range: 0.0-0.2; Units: MG/DL; Status: F Test: TOTAL PROTEIN; Value: 8.2; Range: 6.4-8.2; Units: GM/DL; Status: F Test: ALBUMIN; Value: 3.8; Range: 3.2-5.2; Units: GM/DL; Status: F Test: ALBUMIN/GLOBULIN RATIO; Value: 0.86; Range: 1.00-1.93; Abnormal: Below low normal; Status: F Lab Order: Urinalysis; SPEC'M 01/01/17 17:22 Test: APPEARANCE, URINE; Value: HAZY; Range: CLEAR; Status: F Test: COLOR, URINE; Value: YELLOW; Range: YELLOW; Status: F Test: PH,URINE; Value: 6.0; Range: 5.0-9.0; Units: UNITS; Status: F Test: SPECIFIC GRAVITY URINE AUTO; Value: 1.029; Range: 1.002-1.035; Status: F Test: PROTEIN, URINE AUTO; Value: NEGATIVE; Range: NEGATIVE; Units: mg/dL; Status: F Test: GLUCOSE, URINE (UA) AUTO; Value: NEGATIVE; Range: NEGATIVE; Units: mg/dL; Status: F Test: KETONE, URINE AUTO; Value: NEGATIVE; Range: NEGATIVE; Units: mg/dL; Status: F Test: UROBILINOGEN, URINE AUTO; Value: 0.2; Range: 0.0-2.0; Units: mg/dL; Status: F Test: BILIRUBIN, URINE AUTO; Value: NEGATIVE; Range: NEGATIVE; Status: F Test: NITRITE, URINE AUTO; Value: NEGATIVE; Range: NEGATIVE; Status: F Test: LEUKOCYTE ESTERASE, URINE AUTO; Value: TRACE; Range: NEGATIVE; Abnormal: Above high normal; Status: F Test: BLOOD, URINE BLOOD; Value: NEGATIVE; Range: NEGATIVE; Status: F Test: WBC, URINE AUTO; Value: 2; Range: 0-3; Units: /HPF; Status: F Test: RBC, URINE AUTO; Value: 3; Range: 0-3; Units: /HPF; Status: F Test: BACTERIA, URINE AUTO; Value: NEGATIVE; Range: NEGATIVE; Status: F Test: SQUAMOUS EPITHELIAL CELL UR AU; Value: 3; Range: 0-6; Units: /HPF; Status: F Test: MUCUS, URINE; Value: SMALL; Range: NEGATIVE; Status: F Test: HYALINE CAST, URINE AUTO; Value: 0; Range: 0-1; Units: /LPF; Status: F Lab Order: Urine Culture; SPEC'M 01/01/17 17:22 Test: URINE CULTURE; Value: <EXTERNAL COMMENT eCWMed> FULL REPORT IN LAB NOTES (eCW and Medent).; Status: F Test: URINE CULTURE; Value: URINE CULTURE RESULT NO GROWTH CLINICAL SIGNIFICANCE 1 ORGANISM; Status: F Radiology Order: CT ABD & PELVIS: IV Contrast Only Test: CT ABD & PELVIS: IV Contrast Only REASON FOR EXAMINATION: Appendicitis; ; CT of the abdomen and pelvis with contrast; Clinical statement: Pain.; Technique: Multiple axial CT images were obtained from the base of the lungs through the floor of the; pelvis utilizing 5 mm axial slices after administration of nonionic intravenous contrast. Coronal an; d sagittal reconstructions were also obtained.; Comparison: 01/01/2017.; Findings:; Chest: The visualized lung bases are clear.; Abdomen: The liver, spleen, pancreas, kidneys, gallbladder, and adrenal glands are unremarkable. The; aorta is within normal limits. There is no evidence of abdominal lymphadenopathy or ascites.; Pelvis: The bowel is unremarkable, with no obstructive or inflammatory changes. The appendix is dejuan; l. The urinary bladder is within normal limits. The other pelvic structures appear grossly intact. Th; ere is no evidence of pelvic lymphadenopathy. There is a small amount of free fluid in the cul-de-sac; and right adnexa.; Bones: There are no suspicious osseous abnormalities seen.; Impression: Small amount of free fluid in the cul-de-sac and right adnexa, consistent with the prior; pelvic ultrasound findings. This is likely physiologic in nature. Otherwise unremarkable CT examinati; on of the abdomen and pelvis.; ; Radiology Order: -US Pelvic Non-Ob Complete Test: -US Pelvic Non-Ob Complete REASON FOR EXAMINATION: Adnexal Pain r/o Torsion; ; Clinical stClinical history: Pain.; Findings: Real-time transabdominal and limited transvaginal ultrasound images of the pelvis were obta; ined. An anteverted uterus is noted, measuring 5.6 x 3.2 x 3.7 cm. The uterus demonstrates normal ech; otexture and echogenicity. The endometrial stripe measures 6 mm and is within normal limits. The righ; t ovary measures 2.9 x 2.5 x 3.3 cm. The left ovary measures 3.8 x 2.4 x 2.3 cm. No adnexal masses ar; e seen. Color Doppler flow is seen within both ovaries. There is moderate amount of free fluid in the; cul-de-sac and right adnexa.; Impression: Unremarkable ultrasound examination of the pelvis. Moderate amount of free fluid in the p; balta is likely physiologic in nature.; ; Outcome: 19:25 Discharge ordered by Provider. btw 19:55 Discharge Assessment: Patient awake, alert and oriented x 3. No cognitive and/or lf1 functional deficits noted. Patient verbalized understanding of disposition instructions. Patient awake and alert. Oriented to person, place and time. Patient verbalized understanding of disposition instructions. patient administered narcotics - no. The following High Risk Discharge criteria are identified: None. Discharged to home ambulatory. Condition: improved. Discharge instructions given to patient, Instructed on discharge instructions, follow up and referral plans. medication usage, Demonstrated understanding of instructions, medications, Pt was receptive of discharge instructions/ teaching. Prescriptions given X 1. No special radiology studies were completed. Property :Personal belongings accompany Pt. 19:58 Patient left the ED. lf1 Signatures: Dispatcher [employer] EDMS Lillian Giles, RN RN Cyndy Corbin, IGNITION EXPERT IGNITION EXPERT jam1 Grace Milligan, Reg Reg gb Rebecca Liang,RN RN lf1 Milton Millard, RN RN ml6 Chang Becerril PA PA btw Ibeth Farrar JenniferRN RN js13 Anna Marie Hill am17 Constance Cm, IGNITION EXPERT IGNITION EXPERT rs6 Azeem Shea,RN RN jf3 Thao Ronquillo, Reg Reg ks16 Chart Complete MTDD
--- NOTE | 2017-01-03 20:59 | EDDOCDS ---
Physician Documentation [facility] Name: Ibeth Holt Age: 26 yrs Sex: Female : 1990 Arrival Date: 01/01/2017 Time: 16:50 Bed I3 / M3 Private MD: NO PRIMARY PHYSICIAN, . Disposition: 01/01/17 19:25 Discharged to Home/Self Care. Impression: Other ovarian cysts. - Condition is Stable. - Discharge Instructions: Ovarian Cyst, [id number]. - Prescriptions for etodolac 200 mg Oral Capsule - take 1 capsule by ORAL route 3 times per day; 30 capsule. - Medication Reconciliation, Local Pharmacy Hours form. - Follow up: Your Desolderer; When: Call to arrange an appointment; Reason: Further diagnostic work-up, Recheck today's complaints, Continuance of care. - Problem is new. - Symptoms have improved. Historical: - Allergies: no known allergies; - Home Meds: 1. premaphen daily - PMHx: none; - PSHx: none; - Social history: Smoking status: Patient states was never smoker of tobacco. No barriers to communication noted, The patient speaks fluent Welsh, Speaks appropriately for age. - Family history: Not pertinent. - : The pt / caregiver states he / she is not on anticoagulants. Home medication list is obtained from the patient. - Exposure Risk Screening:: None identified. 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 3 in. (160.02 cm) (R); Pain 6/10; 19:13 BP 137 / 69; Pulse 77; Resp 18; Temp 98.4; Pulse Ox 98% ; Pain 4/10; ajs 16:51 Body Mass Index 37.20 (95.25 kg, 160.02 cm) rs6 MDM: 17:06 NS 0.9% 1000 ml IV at bolus once ordered. btw 17:06 IV Saline Lock ordered. btw 17:06 Undress patient appropriately for examination ordered. btw 17:06 Metoclopramide 20 mg IV at 80 mg/hr once over 15 mins ordered. btw 17:06 diphenhydrAMINE 50 mg IVP once ordered. btw 17:07 Amylase Ordered. EDMS 17:07 Basic Metabolic Profile Ordered. EDMS 17:07 CBC with Diff Ordered. EDMS 17:07 Lipase Ordered. EDMS 17:07 Liver Profile Ordered. EDMS 17:07 Urinalysis Ordered. EDMS 17:08 Urine Culture Ordered. EDMS 17:08 -US Pelvic Non-Ob Complete Ordered. EDMS 17:08 DUPLEX SCAN LIMITED (DOPPLER)+US Ordered. EDMS 17:08 CT ABD & PELVIS: IV Contrast Only Ordered. EDMS 17:08 NOTHING BY MOUTH+DIET ordered. EDMS 17:12 UCG by Nursing ordered. btw 17:28 Financial registration complete. ks16 17:38 Transvaginal NON- US Ordered. EDMS 17:38 [facility] Payment Agreement was scanned into [employer] and attached to record. ks16 18:12 Basic Metabolic Profile Reviewed. btw 18:12 CBC with Diff Reviewed. btw 18:12 Liver Profile Reviewed. btw 18:12 Urinalysis Reviewed. btw 18:12 Amylase Reviewed. btw 18:12 Lipase Reviewed. btw 02/ 11:38 T-Sheet-- Draft Copy was scanned into [employer] and attached to record. Point of Care Testing: Urine : 01/01 17:18 hCG Reading: Negative; Control Reading: Negative; jam1 Ranges: Administered Medications: 17:39 Drug: diphenhydrAMINE 50 mg [diphenhydramine 50 mg/mL injection solution (1 mL)] Route: ml6 IVP; Site: left antecubital; 19:55 Follow up: Response: Nausea is resolved lf1 17:40 Drug: NS 0.9% 1000 ml [sodium chloride 0.9 % intravenous solution] Route: IV; Rate: ml6 bolus; Site: left antecubital; 19:55 Follow up: IV Status: Completed infusion; Infusion discontinued; IV Intake: 1000ml lf1 17:40 Drug: Metoclopramide 20 mg [metoclopramide 5 mg/mL injection solution] Route: IV; Rate: ml6 80 mg/hr; Infused Over: 15 mins; Site: left antecubital; 19:55 Follow up: IV Status: Completed infusion lf1 Signatures: Dispatcher [employer] Lillian Charlton RN RN [facility] Grace Milligan, Reg Reg gb Rebecca Liang RN RN lf1 Chang Becerril PA PA btw Sullivan, JenniferRN RN js13 Thao Ronquillo, Reg Reg ks16 Milton Millard RN ml6 The chart was reviewed and I authenticate all verbal orders and agree with the evaluation and treatment provided.Attachments: 17:38 [facility] Payment Agreement [email or web address] 01/02 11:38 T-Sheet-- Draft Copy gb Chart Complete MTDD
--- NOTE | 2017-01-03 20:59 | EDDOCDS ---
Physician Documentation [facility] Name: Ibeth Holt Age: 26 yrs Sex: Female : 1990 Arrival Date: 01/01/2017 Time: 16:50 Bed I3 / M3 Private MD: NO PRIMARY PHYSICIAN, . Disposition: 01/01/17 19:25 Discharged to Home/Self Care. Impression: Other ovarian cysts. - Condition is Stable. - Discharge Instructions: Ovarian Cyst, [id number]. - Prescriptions for etodolac 200 mg Oral Capsule - take 1 capsule by ORAL route 3 times per day; 30 capsule. - Medication Reconciliation, Local Pharmacy Hours form. - Follow up: Your Cell Plasterer; When: Call to arrange an appointment; Reason: Further diagnostic work-up, Recheck today's complaints, Continuance of care. - Problem is new. - Symptoms have improved. Historical: - Allergies: no known allergies; - Home Meds: 1. premaphen daily - PMHx: none; - PSHx: none; - Social history: Smoking status: Patient states was never smoker of tobacco. No barriers to communication noted, The patient speaks fluent Macedonian, Speaks appropriately for age. - Family history: Not pertinent. - : The pt / caregiver states he / she is not on anticoagulants. Home medication list is obtained from the patient. - Exposure Risk Screening:: None identified. 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 3 in. (160.02 cm) (R); Pain 6/10; 19:13 BP 137 / 69; Pulse 77; Resp 18; Temp 98.4; Pulse Ox 98% ; Pain 4/10; ajs 16:51 Body Mass Index 37.20 (95.25 kg, 160.02 cm) rs6 MDM: 17:06 NS 0.9% 1000 ml IV at bolus once ordered. btw 17:06 IV Saline Lock ordered. btw 17:06 Undress patient appropriately for examination ordered. btw 17:06 Metoclopramide 20 mg IV at 80 mg/hr once over 15 mins ordered. btw 17:06 diphenhydrAMINE 50 mg IVP once ordered. btw 17:07 Amylase Ordered. EDMS 17:07 Basic Metabolic Profile Ordered. EDMS 17:07 CBC with Diff Ordered. EDMS 17:07 Lipase Ordered. EDMS 17:07 Liver Profile Ordered. EDMS 17:07 Urinalysis Ordered. EDMS 17:08 Urine Culture Ordered. EDMS 17:08 -US Pelvic Non-Ob Complete Ordered. EDMS 17:08 DUPLEX SCAN LIMITED (DOPPLER)+US Ordered. EDMS 17:08 CT ABD & PELVIS: IV Contrast Only Ordered. EDMS 17:08 NOTHING BY MOUTH+DIET ordered. EDMS 17:12 UCG by Nursing ordered. btw 17:28 Financial registration complete. ks16 17:38 Transvaginal NON- US Ordered. EDMS 17:38 [facility] Payment Agreement was scanned into [employer] and attached to record. ks16 18:12 Basic Metabolic Profile Reviewed. btw 18:12 CBC with Diff Reviewed. btw 18:12 Liver Profile Reviewed. btw 18:12 Urinalysis Reviewed. btw 18:12 Amylase Reviewed. btw 18:12 Lipase Reviewed. btw 02/ 11:38 T-Sheet-- Draft Copy was scanned into [employer] and attached to record. Point of Care Testing: Urine : 01/01 17:18 hCG Reading: Negative; Control Reading: Negative; jam1 Ranges: Administered Medications: 17:39 Drug: diphenhydrAMINE 50 mg [diphenhydramine 50 mg/mL injection solution (1 mL)] Route: ml6 IVP; Site: left antecubital; 19:55 Follow up: Response: Nausea is resolved lf1 17:40 Drug: NS 0.9% 1000 ml [sodium chloride 0.9 % intravenous solution] Route: IV; Rate: ml6 bolus; Site: left antecubital; 19:55 Follow up: IV Status: Completed infusion; Infusion discontinued; IV Intake: 1000ml lf1 17:40 Drug: Metoclopramide 20 mg [metoclopramide 5 mg/mL injection solution] Route: IV; Rate: ml6 80 mg/hr; Infused Over: 15 mins; Site: left antecubital; 19:55 Follow up: IV Status: Completed infusion lf1 Signatures: Dispatcher [employer] Lillian Charlton RN RN [facility] Grace Milligan, Reg Reg gb Rebecca Liang RN RN lf1 Chang Becerril PA PA btw Sullivan, JenniferRN RN js13 Thao Ronquillo, Reg Reg ks16 Milton Millard RN ml6 The chart was reviewed and I authenticate all verbal orders and agree with the evaluation and treatment provided.Attachments: 17:38 [facility] Payment Agreement [email or web address] 01/02 11:38 T-Sheet-- Draft Copy gb Chart Complete MTDD
== END 2017-01-01 19:58 | disposition home or self-care (01) ==
LOC: M ED 16:50
DX: N83.209 Unspecified ovarian cyst, unspecified side (principal); Z79.899 Other long term (current) drug therapy
CPT/HCPCS: 36415; 74177; 76830; 76856; 80048; 80076; 81001; 81025; 82150; 83690; 85025; 87086; 93976; 96365; 96366; 96375; 99284; J1200; J2765; Q9967